=== PATIENT | male | born 1980 | race Two or more races ===

== ENCOUNTER 2021-04-08 04:30 | Emergency (ER) | payer MEDICAID, OTHER ==
[~2021-04-08] VITALS: Ht 177.8 cm; Wt 81.6 kg
[2021-04-08 04:53] VITALS: BP 153/95
== END 2021-04-08 05:38 | disposition left against medical advice (07) ==
LOC: ER 04:30
DX: R07.81 Pleurodynia (principal); Z53.21 Procedure and treatment not carried out due to patient leaving prior to being seen by health care provider